=== PATIENT | male | born 1985 | race African-American/Black ===

== ENCOUNTER 2019-08-18 | Emergency (ER) | payer BC ==
[~2019-08-18] MED LIST: CIPROFLOXACN500 MG PO; CORTISPORIN OTI10 ML AD; LORTAB 10 PO; NO; ONDANSETRON4 MG PO
[2019-08-18] MEDS ORDERED: VOLTAREN - GENE75 MG PO (22:52)
== END 2019-08-18 23:00 | disposition home or self-care (01) | DRG 552 ==
DX: M54.16 Radiculopathy, lumbar region (principal)

== ENCOUNTER 2023-02-19 16:37 | Emergency (ER) | payer BC ==
[~2023-02-19] VITALS: Ht 188 cm; Wt 109.1 kg
[~2023-02-19 16:37] MED LIST changes: +VOLTAREN - GENE75 MG PO
[2023-02-19 16:47] VITALS: BP 137/80
[2023-02-19] MEDS ORDERED: OMNI-PAC300 MG PO (17:01)
[2023-02-19 17:30] VITALS: BP 137/80
[2023-02-19] MEDS ORDERED: MUPIROCIN2 % EX (17:35)
== END 2023-02-19 17:36 | disposition home or self-care (01) | DRG 605 ==
LOC: ED 16:37
DX: S81.012A Laceration without foreign body, left knee, initial encounter (principal); W22.09XA Striking against other stationary object, initial encounter

== ENCOUNTER 2024-07-28 19:33 | Emergency (ER) | payer BC ==
[~2024-07-28] VITALS: Ht 188 cm; Wt 99.0 kg
[~2024-07-28 19:33] MED LIST changes: +MUPIROCIN2 % EX; +OMNI-PAC300 MG PO
[2024-07-28] MEDS ORDERED: oxyCODONE 5MG/ ACETAMINOPHEN 325MG TAB PO ONE (20:20)
[2024-07-28 21:22] VITALS: BP 118/76
[2024-07-29] MEDS ORDERED: PERCOCET 5/325M1 TAB PO (04:31)
== END 2024-07-28 21:25 | disposition home or self-care (01) | DRG 605 ==
LOC: ED 19:33
DX: S40.011A Contusion of right shoulder, initial encounter (principal); W01.198A Fall on same level from slipping, tripping and stumbling with subsequent striking against other object, initial encounter